=== PATIENT | male | born 1960 | race Caucasian/White ===

== ENCOUNTER → 2020-10-25 | Outpatient (CLI) | payer MEDICARE ==
--- NOTE | 2020-10-25 13:56 | XR ---
Left elbow HISTORY: Pain, trauma 2 views of left elbow There is an ossific density present at the level of the medial humeral condyle of indeterminate age. Soft tissue swelling is present. There is an elbow joint effusion. Bone mineralization is maintained. Alignment is within normal limits. There is an enthesophyte at insertion of the triceps tendon. impression: Correlate for avulsion injury, fracture at the level of the medial humeral condyle no dis location evident. Suspect elbow joint effusion. Elbow MRI may be of benefit.
== END | disposition home or self-care (01) ==
LOC: RADXRMAIN 11:37
PROVIDERS: ATTEND Nurse Practitioner Family
DX: S59.902A Unspecified injury of left elbow, initial encounter (principal)

== ENCOUNTER → 2021-08-14 | Outpatient (CLI) | payer MEDICARE ==
--- NOTE | 2021-08-14 12:33 | US ---
EXAMINATION TYPE: US kidneys/renal and bladder DATE OF EXAM: 08/14/2021 COMPARISON: NONE CLINICAL HISTORY: 61-year-old male R39.81 URINARY INCONTINENCE. The patient cannot hold his urine, on going, no pain or other issues TECHNIQUE: Multiple sonographic images of the kidneys and bladder are obtained. FINDINGS: EXAM MEASUREMENTS: Right Kidney: 11.5 x 5.4 x 6.1 cm Left Kidney: 11.9 x 4.8 x 6.6 cm Right Kidney: Sizable 4.0 cm parapelvic cyst at the upper mid pole. No branching structures to sugges t hydronephrosis. Left Kidney: No hydronephrosis or masses seen Bladder: Under distention limits evaluation. IMPRESSION: Suggestion of a large 4 cm parapelvic cyst of the right kidney. No branching structures to suggest hy dronephrosis on either side.
== END | disposition home or self-care (01) ==
LOC: RADUSWWP 11:03
PROVIDERS: ATTEND Internal Medicine
DX: R39.81 Functional urinary incontinence (principal)
CPT/HCPCS: 76770